=== PATIENT | female | born 1950 | race Caucasian/White ===

== ENCOUNTER 2017-12-01 09:49 | Emergency (ER) | END 2017-12-01 15:41 | disposition short-term general hospital (02) ==

== ENCOUNTER 2019-04-26 06:44 | Emergency (ER) | payer OTHER ==
[~2019-04-26] VITALS: Ht 154.9 cm; Wt 70.0 kg
[~2019-04-26 06:44] MED LIST: DULO60CA6 PO; LEVO75TA5 PO; MOME13HF INHALATION; TIOT18CA INHALATION
[2019-04-26 06:45] VITALS: Ht 154.9 cm; Wt 70.0 kg
[2019-04-26] MEDS ORDERED: ONDANSETRON (ODT) 4 MG TAB ODT STA (07:08)
[2019-04-26] MEDS ORDERED: KETOROLAC 30 MG INJ IM STA (07:08)
[2019-04-26] MEDS ORDERED: HYDROmorphONE 2 MG/ML SYG IM STA (07:08)
[2019-04-26] MEDS ORDERED: IBUP-1542 PO (08:17)
[2019-04-26] MEDS ORDERED: NALO4SPR NS (08:17)
[2019-04-26] MEDS ORDERED: HYDR-3980 PO (08:17)
--- NOTE | 2019-04-26 09:16 | ERD ---
ER Documentation Chief Complaint Chief Complaint back pain x 3 weeks, from home bib RA [id number] HPI Patient is a 68-year-old female with CHF, COPD, and sciatic nerve pain who presents saying "my sciatic nerve went out". She said that it started 3 weeks ago and has been worsening. Today it was hard to walk. This morning she could not sit up because of the pain. She was brought in by ambulance. She tried ibuprofen at 4 AM. She has bilateral lower extremity pain as well. She has had no new incontinence. She denies fevers. Upon review of old medical records this is the patient's third visit to the ER since 2012. Her primary doctor is a [facility]. ROS All systems reviewed and are negative except as per history of present illness. Medications Home Meds Active Scripts Naloxone HCl nasal spray (Narcan 4 mg/0.1 mL nasal) 4 Mg [place], 4 MG NS .Q2-3MIN for OPIOID OVERDOSE, #2 SPRAY 0 Refills [place] 0.1 mL into one nostril. Repeat with second device into other nostril after 2-3 minutes if no or minimal response Prov:MARIAA ROLLINS MD 04/26/19 Hydrocodone/Acetaminophen ([place] 10-325 Tablet) 1 Each Tablet, 1 TAB PO Q6H PRN for PAIN, #7 TAB Prov:MARIAA ROLLINS MD 04/26/19 Ibuprofen* (Motrin*) 600 Mg Tab, 600 MG PO Q6H PRN for PAIN AND OR ELEVATED TEMP, #30 TAB Prov:MARIAA ROLLINS MD 04/26/19 Reported Medications Mometasone-Formoterol (Dulera) Unknown Strength Hfa.aer.ad, 2 PUFFS INHALATION BID, #1 INHALER 12/01/17 Levothyroxine Sodium* (Levothyroxine Sodium*) Unknown Strength Tablet, 1 TAB PO BEFORE BREAKFAST, #30 TAB 12/01/17 Tiotropium Perry* (Spiriva*) 18 Mcg Cap.w.dev, 1 CAP INHALATION DAILY, #30 CAP 12/01/17 Duloxetine Hcl* (Cymbalta*) 60 Mg Capsule.dr, 120 MG PO QHS, CAP 12/01/17 Allergies Allergies: Coded Allergies: doxycycline (Verified Allergy, Unknown, 04/26/19) PMhx/Soc History of Surgery: Yes (left lumpectomy, right ankle/foot, appendix, right ovarian cyst) Anesthesia Reaction: No Hx Neurological Disorder: No Hx Respiratory Disorders: Yes (asthma, copd, ) Hx Cardiac Disorders: No (pericarditis, ) Hx Psychiatric Problems: No Hx Miscellaneous Medical Probl: Yes (thyroid) Hx Alcohol Use: No Hx Substance Use: No Hx Tobacco Use: No Smoking Status: Never smoker FmHx Family History: No diabetes Physical Exam Vitals Vital Signs Date Temp Pulse Resp B/P (MAP) Pulse Ox O2 O2 Flow FiO2 Time Delivery Rate 04/26/19 97.8 98 22 160/104 93 06:45 (122) Physical Exam Const: No acute distress Head: Atraumatic Eyes: Normal Conjunctiva ENT: Normal External Ears, Nose and Mouth. Neck: Full range of motion. No meningismus. Resp: Clear to auscultation bilaterally Cardio: Regular rate and rhythm, no murmurs Abd: Soft, non tender, non distended. Normal bowel sounds Skin: No petechiae or rashes Back: Lower back pain with radiation down the bilateral legs Ext: No cyanosis, or edema Neur: Awake and alert Psych: Normal Mood and Affect Results 24 hrs Current Medications Medications Dose Sig/Krishan Start Time Status Last (Trade) Ordered Route PRN Stop Time Admin Dose Reason Admin 2 mg ONCE STAT 04/26/19 DC 04/26/19 Hydromorphone IM 07:08 04/26/19 07:16 HCl 07:09 (Dilaudid) Ketorolac 30 mg ONCE STAT 04/26/19 DC 04/26/19 Tromethamine IM 07:08 04/26/19 07:19 (Toradol) 07:09 Ondansetron 4 mg ONCE STAT 04/26/19 DC 04/26/19 HCl (Zofran ODT 07:08 04/26/19 07:19 Odt) 07:09 Procedures/MDM Patient is a 68-year-old female presents with acute on chronic back pain. I doubt epidural abscess, epidural hematoma, or cauda equina syndrome. The patient was given Toradol and Dilaudid for pain. The patient will be discharged back home but will need to follow-up closely with the primary doctor within 24 to 48 hours. I believe the patient has acute sciatic pain. The patient will be given a prescription for ibuprofen, [place], and Narcan. Departure Diagnosis: Primary Impression: Sciatic pain Laterality: unspecified laterality Qualified Codes: M54.30 - Sciatica, unspecified side Additional Impression: Back pain Back pain location: low back pain Chronicity: acute Back pain laterality: bilateral Sciatica presence: with sciatica Sciatica laterality: bilateral sciatica Qualified Codes: M54.42 - Lumbago with sciatica, left side; M54.41 - Lumbago with sciatica, right side Condition: Fair Patient Instructions: Back Pain W/ Sciatica Referrals: Your doctor at [place] Additional Instructions: Call your primary care doctor TOMORROW for an appointment during the next 1-2 days.See the doctor sooner or return here if your condition worsens before your appointment time. MARIAA ROLLINS MD Apr 26, 2019 09:15
[2019-04-26 09:30] VITALS: BP 136/89; PULSE 98; RESP 20
== END 2019-04-26 09:32 | disposition home or self-care (01) ==
LOC: E/R 06:44
DX: M54.41 Lumbago with sciatica, right side (principal); J44.9 Chronic obstructive pulmonary disease, unspecified; I50.9 Heart failure, unspecified
CPT/HCPCS: 96372; 99284; J1170; J1885